=== PATIENT | female | born 1980 ===

== ENCOUNTER 2018-07-08 19:35 | Emergency (ER) | payer OTHER ==
[~2018-07-08] VITALS: Ht 157.5 cm; Wt 74.8 kg
== END 2018-07-08 21:59 | disposition home or self-care (01) ==
LOC: ER 19:35
DX: M62.838 Other muscle spasm (principal)

== ENCOUNTER 2018-09-26 12:23 | Emergency (ER) | payer OTHER | END 2018-09-26 19:37 | disposition home or self-care (01) | LOC: ER 12:23 | DX: D25.1 Intramural leiomyoma of uterus (principal); D25.2 Subserosal leiomyoma of uterus; R10.2 Pelvic and perineal pain ==